=== PATIENT | male | born 1945 | race Caucasian/White ===

== ENCOUNTER 2024-12-12 14:25 | Emergency (ER) | payer OTHER, SELFPAY ==
[2024-12-12 14:32] VITALS: BP 191/87; BP 197/98; PULSE 66; RESP 20; TEMP 36.6; O2SAT 96; BMI 26.2
--- NOTE | 2024-12-12 14:35 | EKG_ITS ---
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
--- NOTE | 2024-12-12 14:35 | XR_ITS ---
Examination: CT brain head without contrast. 2-D sagittal coronal reconstructions Date and time of exam:December 12, 2024, 1453 hrs. Comparison January 2008 Indications: Hypertension with headache today CTDI: vol (mGy):53.2 DLP: (mGycm):1177 Technique: Multiple CT axial sections of the brain have been obtained, 5 mm slice thickness. Contrast has not been administered. 2-D sagittal, coronal reconstructions have been obtained Low dose protocols were performed. One or more of the following dose reduction techniques were used; automated exposure control, adjustment of the mA and/or KV according to patient size, use of iterative reconstruction technique. Findings: No significant ventricular enlargement. Intra-axial or extra-axial hemorrhage density is not seen. No mass effect or midline shift Basal cisterns are not remarkable. Fourth ventricle is midline. Cranial vault intact. Impression: Negative for acute hemorrhage, mass effect or midline shift
--- NOTE | 2024-12-12 14:36 | PD.EDRME ---
Rapid Medical Screening Exam RME Arrival date/time: 12/12/24 14:25 This is a case of 78-year-old male who came in in the emergency room due to headache and dizziness and elevated blood pressure patient also complaining of left chest pain and left arm pain for 2 days worsening of the symptoms this patient decided to start consult here in the emergency room Chief Complaint: General Adult/Misc Complain Time Seen by Provider: 12/12/24 14:34
[2024-12-12 15:11] LABS: Collection Type, Urine Voided
[2024-12-12 15:15] LABS: Basophils # (Auto) 0.1 Thou/mm3 (0.0-0.2); Basophils % (Auto) 1 % (0-2.5); Eosinophils # (Auto) 0.2 Thou/mm3 (0.0-0.5); Eosinophils % (Auto) 2 % (0-10); Hematocrit 49.6 % (41.0-53.0); Hemoglobin 16.7 g/dL (13.5-16.0); Immature Granulocytes % (Auto) 0 % (0-0); Immature Granulocytes Auto 0.01 Thou/mm3 (0.00-0.00); Lymphocytes # (Auto) 1.4 Thou/mm3 (1.0-4.8); Lymphocytes % (Auto) 19 % (10-50); Mean Corpuscular HGB Conc 33.7 g/dl (31.0-37.0); Mean Corpuscular Hemoglobin 29.1 pg (25.0-35.0); Mean Corpuscular Volume 87 fL (80-100); Monocytes # (Auto) 0.4 Thou/mm3 (0.0-0.8); Monocytes % (Auto) 6 % (0-12); Neutrophils # (Auto) 5.4 Thou/mm3 (1.8-7.7); Neutrophils % (Auto) 73 % (37-80); Nucleated Red Blood Cell % 0 /100 WBC (0); Platelet Count 177 Thou/mm3 (140-440); RDW Standard Deviation 44.1 fL (35.1-43.9); Red Blood Count 5.73 Miln/mm3 (4.50-5.90); White Blood Count 7.4 Thou/mm3 (3.8-10.6)
[2024-12-12 15:28] LABS: Bilirubin,Urine Negative (Negative); Blood,Urine Trace (Negative); Clarity,Urine Clear (Clear/Hazy); Color,Urine Lt-Yellow (Lt Yel-Yel); Glucose, Urine Negative (Negative); Ketones,Urine Negative (Negative); Leukocyte Esterase,Urine Negative (Negative); Nitrite,Urine Negative (Negative); Protein,Urine Trace (Neg - Trace); RBC,Urine 1 /hpf (0-3); Specific Gravity,Urine 1.017 (1.001-1.035); Squamous Epithelial Cell,Urine < 1 /hpf (0-5); Urobilinogen,Urine Negative mg/dL (0.0-1.0); WBC,Urine 1 /hpf (0-5)
[2024-12-12 15:35] LABS: Alanine Aminotransferase 21 U/L (10-49); Albumin, Serum 4.5 gm/dL (3.4-4.8); Albumin/Globulin Ratio 1.6 (1.2-2.2); Alkaline Phosphatase 148 U/L (46-116); Anion Gap 5 (7-16); Aspartate Amino Transferase 15 U/L (0-34); BUN/Creatinine Ratio 9 Ratio (12-20); Bilirubin,Total 0.7 mg/dL (0.3-1.2); Blood Urea Nitrogen 11 mg/dL (9-23); Calcium 8.8 mg/dL (8.3-10.6); Calcium (Corrected) 8.8 mg/dL (8.5-10.1); Carbon Dioxide 26.3 mMol/L (20.0-31.0); Chloride 108 mMol/L (98-107); Creatinine (Component) 1.2 mg/dL (0.6-1.3); Estimated Creatinine Clearance 54.1 mL/min (>60); Globulin 2.8 gm/dL (2.3-3.5); Glucose 113 mg/dL (74-106); Osmolality,Calculated 277 (275-295); Potassium 3.5 mMol/L (3.4-5.1); Sodium 139 mMol/L (136-145); Total Protein 7.3 gm/dL (5.7-8.2); Troponin I < 0.020 ng/mL (0.0-0.045); eGFR > 60 See Note
--- NOTE | 2024-12-12 19:28 | PC.NURSE ---
per AIDE Tariq pt was no answer for review and exam at 1830 and again at 1927.
--- NOTE | 2024-12-12 19:34 | PC.LAC ---
Marciano called pt with NA x3 [id number], [id number] we will elope chart
== END 2024-12-12 19:42 | disposition left against medical advice (07) ==
PROVIDERS: Nurse Practitioner Family; Emergency Provider Emergency Medicine; PCP Family Medicine
DX: R51.9 Headache, unspecified (principal); R42 Dizziness and giddiness; Z53.29 Procedure and treatment not carried out because of patient's decision for other reasons; R07.89 Other chest pain; M79.602 Pain in left arm; R03.0 Elevated blood-pressure reading, without diagnosis of hypertension; R94.31 Abnormal electrocardiogram [ECG] [EKG]
CPT/HCPCS: 36415; 70450; 80053; 81001; 84484; 85025; 93005; 99281

== ENCOUNTER → 2025-02-02 | Outpatient (CLI) | payer OTHER, SELFPAY ==
--- NOTE | 2025-02-02 10:22 | XR_ITS ---
Examination: Shoulder,left, 3 views Technique: Shoulder AP internal rotation, AP external rotation, Y view shoulder, 3 views Exam date and time :April 04, 2025 1037 hours INDICATIONS: Left shoulder pain one year. FINDINGS: Prominent osteopenia. Moderate narrowing left glenohumeral joint No fracture or shoulder dislocation IMPRESSION: Moderate osteoarthritis left glenohumeral joint
== END | disposition home or self-care (01) ==
LOC: CDIM 10:04
PROVIDERS: PCP Family Medicine; Referring Provider Family Medicine; Visit Provider Family Medicine
DX: M19.012 Primary osteoarthritis, left shoulder (principal)
CPT/HCPCS: 73030

== ENCOUNTER → 2025-02-24 | Outpatient (CLI) | payer OTHER, SELFPAY ==
--- NOTE | 2025-02-24 | XR_ITS ---
Examination: Knee, left , 3 views Technique: Knee AP, lateral, oblique 3 views Date and time of exam: February 24, 2025 1124 hours INDICATIONS: Left knee pain beginning 2 weeks ago FINDINGS: Moderate narrowing medial joint space No fracture or dislocation. No foreign body IMPRESSION: Moderate narrowing medial joint space
== END | disposition home or self-care (01) ==
PROVIDERS: PCP Family Medicine; Referring Provider Family Medicine; Visit Provider Family Medicine
DX: M25.862 Other specified joint disorders, left knee (principal)
CPT/HCPCS: 73562

== ENCOUNTER 2025-03-06 03:01 | Emergency (ER) | payer OTHER, SELFPAY ==
[2025-03-06 03:05] VITALS: BMI 25.9
[2025-03-06 04:08] VITALS: BP 208/98; BP 220/111; PULSE 61; RESP 17; TEMP 36.6; O2SAT 97
--- NOTE | 2025-03-06 04:15 | XR_ITS ---
Examination: CT abdomen and pelvis without contrast. Coronal 3-D reconstructions. Sagittal 2-D reconstructions. Date and time of exam:March 06, 2025, 0520 hrs., Comparison December 30, 2016 Indications: Flank pain dysuria lower back pain beginning 2 days ago CTDI: vol (mGy): 8.98 DLP: (mGycm): 557 Technique: Axial images of the abdomen have been obtained, 3 mm slice thickness Intravenous contrast material has not been administered. Low dose protocols were performed. One or more of the following dose reduction techniques were used; automated exposure control, adjustment of the mA and/or KV according to patient size, use of iterative reconstruction technique. Findings: No focal liver or splenic lesion No gallstones No pancreatic or adrenal mass 2 mm 4 mm right renal calculi, no hydronephrosis or ureteral calculi Abdominal aortic calcification no aneurysmal dilatation No bowel obstruction No pericecal inflammatory change Colonic diverticulosis, no diverticulitis Intact urinary bladder Prostatomegaly mediolateral dimension 4.3 cm Transpedicular lumbar fusion L4-S1 4.6 cm osteolytic lesion intertrochanteric region left hip with central 27 mm fat nidus Impression: Nonobstructing right renal calculi No hydronephrosis or ureteral calculi Severe osteopenia with kyphoplasty L2, L1 Stable osteolytic lesion intertrochanteric region left hip with cervical 27 mm fat nidus compared with December 30, 2016
--- NOTE | 2025-03-06 04:16 | PD.EDRME ---
Rapid Medical Screening Exam RME Arrival date/time: 03/06/25 03:01 This is a case of 79-year-old male with history of hypertension and chronic low back pain came in in the emergency room due to bilateral flank pain radiating to both lower abdomen associated with nausea vomiting painful urination increased frequency and urgency for 2 days worsening of the symptoms this patient decided to sought consult here in the emergency room Chief Complaint: Back Pain/Injury Time Seen by Provider: 03/06/25 04:15 Vital signs: Vital Signs Temperature 97.8 F 03/06/25 04:08 Pulse Rate 61 03/06/25 04:08 Respiratory Rate 17 03/06/25 04:08 Blood Pressure 220/111 H 03/06/25 04:08 Pulse Oximetry (%) 97 03/06/25 04:08 Oxygen Delivery Method Room Air 03/06/25 04:08
[2025-03-06 04:28] LABS: Collection Type, Urine Clean Catch; Squamous Epithelial Cell,Urine 0 /hpf (0-5)
[2025-03-06 04:34] LABS: Bilirubin,Urine Negative (Negative); Blood,Urine Negative (Negative); Clarity,Urine Clear (Clear/Hazy); Color,Urine Colorless (Lt Yel-Yel); Glucose, Urine Negative (Negative); Ketones,Urine Negative (Negative); Leukocyte Esterase,Urine Negative (Negative); Nitrite,Urine Negative (Negative); PH,Urine 7.0 (5.0-7.0); Protein,Urine Negative (Neg - Trace); RBC,Urine 6 /hpf (0-3); Specific Gravity,Urine 1.012 (1.001-1.035); Urobilinogen,Urine Negative mg/dL (0.0-1.0); WBC,Urine < 1 /hpf (0-5)
[2025-03-06 04:41] VITALS: BP 220/111; PULSE 61
[2025-03-06 05:02] LABS: Basophils # (Auto) 0.1 Thou/mm3 (0.0-0.2); Basophils % (Auto) 1 % (0-2.5); Eosinophils # (Auto) 0.3 Thou/mm3 (0.0-0.5); Eosinophils % (Auto) 3 % (0-10); Hematocrit 49.1 % (41.0-53.0); Hemoglobin 16.4 g/dL (13.5-16.0); Immature Granulocytes Auto 0.03 Thou/mm3 (0.00-0.00); Lymphocytes # (Auto) 1.7 Thou/mm3 (1.0-4.8); Lymphocytes % (Auto) 18 % (10-50); Mean Corpuscular HGB Conc 33.4 g/dl (31.0-37.0); Mean Corpuscular Hemoglobin 29.4 pg (25.0-35.0); Mean Corpuscular Volume 88 fL (80-100); Monocytes # (Auto) 0.6 Thou/mm3 (0.0-0.8); Monocytes % (Auto) 7 % (0-12); Neutrophils # (Auto) 6.8 Thou/mm3 (1.8-7.7); Neutrophils % (Auto) 71 % (37-80); Nucleated Red Blood Cell # 0.00 Thou/mm3 (0.00-0.00); Nucleated Red Blood Cell % 0 /100 WBC (0); Platelet Count 181 Thou/mm3 (140-440); RDW Standard Deviation 46.5 fL (35.1-43.9); Red Blood Count 5.57 Miln/mm3 (4.50-5.90); White Blood Count 9.6 Thou/mm3 (3.8-10.6)
[2025-03-06 05:20] LABS: Alanine Aminotransferase 28 U/L (10-49); Albumin, Serum 4.5 gm/dL (3.4-4.8); Albumin/Globulin Ratio 1.8 (1.2-2.2); Alkaline Phosphatase 142 U/L (46-116); Anion Gap 7 (7-16); Aspartate Amino Transferase 18 U/L (0-34); BUN/Creatinine Ratio 11 Ratio (12-20); Bilirubin,Total 0.9 mg/dL (0.3-1.2); Blood Urea Nitrogen 13 mg/dL (9-23); Calcium 9.3 mg/dL (8.3-10.6); Calcium (Corrected) 9.3 mg/dL (8.5-10.1); Carbon Dioxide 26.6 mMol/L (20.0-31.0); Chloride 109 mMol/L (98-107); Creatinine (Component) 1.2 mg/dL (0.6-1.3); Estimated Creatinine Clearance 53.2 mL/min (>60); Globulin 2.5 gm/dL (2.3-3.5); Glucose 98 mg/dL (74-106); Osmolality,Calculated 285 (275-295); Potassium 3.8 mMol/L (3.4-5.1); Sodium 143 mMol/L (136-145); Total Protein 7.0 gm/dL (5.7-8.2); eGFR > 60 See Note
[2025-03-06 05:53] VITALS: BP 151/76; PULSE 60; RESP 18; TEMP 36.6; O2SAT 98
--- NOTE | 2025-03-06 06:21 | PRELIM_ITS ---
CT scan of the abdomen and pelvis without intravenous contrast (axial sections with sagittal and coronal reformats) March 06, 2025 at 0520 hours Clinical History: Kidney stone No prior study is available for comparison. Findings: Left basilar atelectasis is seen. There is left adrenal thickening. Nonobstructing 3 mm right renal calculus is seen. No evidence of ureteric calculus or hydroureteronephrosis. The pancreas is atrophic. The liver, gallbladder, spleen, left kidney and right adrenal are unremarkable on this noncontrast study. A small hiatal hernia is present. No evidence of bowel obstruction. The appendix is within normal limits (axial image 142/291). There are multiple colonic diverticula without evidence of diverticulitis. There is no mesenteric or retroperitoneal adenopathy. The urinary bladder is unremarkable. There is mild prostatomegaly. There is no free fluid or free air. Calcific densities are seen in the pelvis, likely representing phleboliths. The bones are osteopenic. Posterior spinal fusion at L4-S1 levels. Post kyphoplasty of L1 and L2. There is lytic lesion in the left proximal femur measuring 5 x 2.8 x 2.4 cm with internal rim calcified nucleus. Moderate degenerative changes are identified in the spine. Impression: 1. Nonobstructing 3 mm right renal calculus. 2. No evidence of ureteric calculus or hydroureteronephrosis. 3. 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 Recommend further evaluation with MRI. 4. Other findings as described above. Report Electronically Signed By: Vinny Hdez 03/06/2025 6:20:39 AM [EST]
--- NOTE | 2025-03-06 07:25 | EDNOTE_ITS ---
ED Back Injury Pain RME/HPI General Chief Complaint: Back Pain/Injury Stated Complaint: PAIN IN URINATION, LOWER BACK PAIN, FREQUENCY Time Seen by Provider: 03/06/25 04:15 Source: patient, RN notes reviewed and old records reviewed Arrival date/time: 03/06/25 03:01 Mode of arrival: ambulatory Limitations: no limitations RME / HPI RME / HPI Narrative: 79yom presents to ED for 2-day history of generalized low back pain. No preceding injury or fall. Patient reports history of chronic pain and arthritis, takes gapapentin and norco at home. Low back pain worsens with movement and ambulation. No fever, shortness of breath, chest pain, nausea/vomiting, flank pain or dysuria/hematuria reported. Patient reports mild urinary urgency, history of BPH. 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 Related Data Home Medications ?Medication ?Instructions ?Recorded ?Confirmed aspirin 81 mg tablet,delayed 81 mg PO DAILY 01/26/18 0 09/27/20 release (Aspir-) doxazosin 1 mg tablet 8 mg PO QDAY 01/26/18 hydrocodone 7.5 mg-acetaminophen 1 tab PO Q6H PRN Pain 01/26/18 09/27/20 325 mg tablet (Frederic) lisinopril 40 mg tablet 40 mg PO QDAY 01/26/1809/27 atorvastatin 10 mg tablet 10 mg PO QDAY 09/27/2009/27 Allergies Allergy/AdvReac Type Severity Reaction Status Date / Time codeine Allergy Severe Vomiting Verified 03/06/25 03:03 Review of Systems Review of Systems Systems Reviewed: All systems reviewed, normal except as documented Constitutional Constitutional: Denies chills and Denies fever(s) ENT Ears, Nose, Mouth, and Throat: Denies neck pain Gastrointestinal Gastrointestinal: Denies abdominal pain, Denies fecal incontinence, Denies loose stools, Denies nausea and Denies vomiting Genitourinary Genitourinary: Denies dysuria, Denies flank pain, Denies hematuria, Denies urinary incontinence and Reports urinary urgency Musculoskeletal Musculoskeletal: Reports back pain, Denies neck pain, Denies numbness and Denies tingling Neurologic Neurologic: Denies localized weakness, Denies numbness and Denies tingling Past Medical History Past Medical History CARDIAC: Positive Cardiac Disorders, Coronary Artery Disease (STENT), Peripheral Vascular Disease, Hypercholesterolemia and Hypertension RESPIRATORY: Positive Chronic Obstructive Pulmonary Disease (COPD) GASTROINTESTINAL: Positive Gastroesophageal Reflux Disease GENITOURINARY: Positive Benign Prostatic Hyperplasia MUSCULOSKELETAL: Positive Musculoskeletal Disorders and Arthritis Surgical History SURGICAL: Positive Coronary Stent (X1) and Open Reduction Internal Fixation (LEFT ANKLE.....REMOVED 6 YEARS LATER) Social History SMOKING STATUS: Current every day smoker Travel History EBOLA RISK: No ED Exam General Limitations: Present no limitations General appearance: Present alert and in no apparent distress Head Head exam: Present atraumatic and normocephalic Eye Eye exam: Present normal appearance, PERRL and EOMI ENT ENT exam: Present normal exam and mucous membranes moist Neck Neck exam: Present normal inspection and full ROM Chest Chest inspection: Present normal inspection and symmetric chest wall rise Respiratory Respiratory exam: Present normal lung sounds bilaterally; Absent respiratory distress Cardiovascular Cardiovascular exam: Present regular rate and normal rhythm Abdominal Exam Abdominal exam: Present soft; Absent distention, tenderness, guarding or rebound Extremities Exam Extremities exam: Present normal inspection and full ROM; Absent pedal edema Back Exam Back exam: Present paraspinal tenderness (bilateral lumbar); Absent CVA tenderness (R), CVA tenderness (L) or vertebral tenderness Neurological Exam Neurological exam: Present alert, oriented X3, normal gait and other (No saddle anesthesia); Absent motor sensory deficit Psychiatric Psychiatric exam: Present normal affect and normal mood Skin Skin exam: Present warm, dry, intact and normal color Course Quality Measures none Orders Category Date Time Status CT abdomen pelvis wo con Stat Exams 03/06/25 04:15 Completed CBC Stat Lab 03/06/25 04:47 Completed Comprehensive Metabolic Panel Stat Lab 03/06/25 04:47 Completed Urinalysis Stat Lab 03/06/25 04:25 Completed cloNIDine HCL [Catapres] Med 03/06/25 04:16 Discontinued 0.2 mg PO X1 ONE Vital Signs Vital signs: Vital Signs Temperature 97.8 F 03/06/25 04:08 Pulse Rate 61 03/06/25 04:08 Respiratory Rate 17 03/06/25 04:08 Blood Pressure 220/111 H 03/06/25 04:08 Pulse Oximetry (%) 97 03/06/25 04:08 Oxygen Delivery Method Room Air 03/06/25 04:08 Back Pain / Injury MDM Narrative MDM Narrative:: 79yom presents to ED for 2-day history of generalized low back pain. No preceding injury or fall. Patient reports history of chronic pain and arthritis, takes gapapentin and norco at home. Low back pain worsens with movement and ambulation. No fever, shortness of breath, chest pain, nausea/vomiting, flank pain or dysuria/hematuria reported. Patient reports mild urinary urgency, history of BPH. 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 Patient is well-appearing, neurologically intact, able to ambulate without difficulty. Offered pain medication in ED but patient declined, states he will take his Frederic and gabapentin when he gets home. Encouraged rest, pain management, ice/heat application prn. Close follow-up with PCP. Stable for discharge, RTED precautions given. Patient data External records reviewed:: [facility] previous records (01/06/21 ED visit for folliculitis) Clinical information provided by:: patient Social determinants that could affect healthcare access:: none Patient has the following chronic illnesses:: HTN, BPH How is presenting disease/condition affected by chronic disease/condition?: exacerbated by Evaluation data The following diagnostics were reviewed and interpreted by me:: lab results and radiology exam(s) Lab and/or radiology exams considered but not ordered:: none Interpretation Summary: No leukocytosis No PRISCILLA UA neg leuks/nitrites/blood CT abd/pelvis Impression: 1. Nonobstructing 3 mm right renal calculus. 2. No evidence of ureteric calculus or hydroureteronephrosis. 3. 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 Recommend further evaluation with MRI. 4. Other findings as described above. Report Electronically Signed By: Vinny Hdez 03/06/2025 6:20:39 AM [EST] Medications / Prescriptions Medications or Prescriptions considered but not ordered:: no antibiotics recommended at this time Medication administrations:: Medication Administration History Discontinued Medications Clonidine (Clonidine Hcl 0.1 Mg Tablet) 0.2 mg PO X1 ONE Stop: 03/06/25 04:17 Last Admin: 03/06/25 04:41 Dose: 0.2 mg Documented By: CVL above medication administered in ED Consultations Consultation(s) initiated? (list below): No Diagnosis Differential diagnosis back pain/injury: other (back pain, back strain, kidney stone, renal colic, UTI, lumbar radiculopathy) Most likely diagnosis given after review of the tests above:: low back pain Admission Indicated Admission indicated?: not indicated Admission Request Was there a request for admission?: No Disposition Plan Disposition Plan: Discharge Discharge Attestation Discharge Attestation: The patient and all family members were given an opportunity to ask questions and understood the discharge instructions. Discharge instructions specifically effects, indications for sooner follow up or return to the emergency department, and the expected course of current diagnosis. Patient condition: Stable Discharge Plan Plan Patient Disposition: HOME (Self Care) Patient condition on transfer: Stable Prescriptions/Referrals Prescriptions/Med Rec: No Action doxazosin 1 mg Tablet 8 mg PO QDAY aspirin [Aspir-81] 81 mg Tablet,Delayed Release (Dr/Ec) 81 mg PO DAILY hydrocodone-acetaminophen [Frederic] 7.5-325 mg Tablet 1 tab PO Q6H PRN (Reason: Pain) lisinopril 40 mg Tablet 40 mg PO QDAY atorvastatin 10 mg Tablet 10 mg PO QDAY Referrals: Tucker Nugent MD [Primary Care Provider, Family Practice] - In 1 week Problem List Clinical Impression: Low back pain Patient/Caregiver Discharge Instructions Education Materials: ED Back Pain (Acute or Chronic) Print Language: Telugu Stand Alone Forms: Phyllis Award Info., Patient Portal Info Letter PA/SHOP GIRL Supervising Physician PA/SHOP GIRL Supervising Physician: Shari
== END 2025-03-06 07:31 | disposition home or self-care (01) ==
PROVIDERS: Nurse Practitioner Family; Emergency Provider Emergency Medicine; PCP Family Medicine
DX: N20.0 Calculus of kidney (principal); N40.0 Benign prostatic hyperplasia without lower urinary tract symptoms; M54.50 Low back pain, unspecified
CPT/HCPCS: 36415; 74176; 80053; 81001; 85025; 99283; A9270

== ENCOUNTER → 2025-03-08 | Outpatient (CLI) | payer OTHER, SELFPAY ==
[2025-03-08 08:40] LABS: Basophils # (Auto) 0.1 Thou/mm3 (0.0-0.2); Basophils % (Auto) 1 % (0-2.5); Eosinophils # (Auto) 0.3 Thou/mm3 (0.0-0.5); Eosinophils % (Auto) 4 % (0-10); Hematocrit 46.0 % (41.0-53.0); Hemoglobin 15.3 g/dL (13.5-16.0); Immature Granulocytes Auto 0.03 Thou/mm3 (0.00-0.00); Lymphocytes # (Auto) 1.5 Thou/mm3 (1.0-4.8); Lymphocytes % (Auto) 17 % (10-50); Mean Corpuscular HGB Conc 33.3 g/dl (31.0-37.0); Mean Corpuscular Hemoglobin 29.5 pg (25.0-35.0); Mean Corpuscular Volume 89 fL (80-100); Monocytes # (Auto) 0.6 Thou/mm3 (0.0-0.8); Monocytes % (Auto) 7 % (0-12); Neutrophils # (Auto) 6.1 Thou/mm3 (1.8-7.7); Neutrophils % (Auto) 71 % (37-80); Nucleated Red Blood Cell # 0.00 Thou/mm3 (0.00-0.00); Nucleated Red Blood Cell % 0 /100 WBC (0); Platelet Count 149 Thou/mm3 (140-440); RDW Standard Deviation 46.9 fL (35.1-43.9); Red Blood Count 5.18 Miln/mm3 (4.50-5.90); White Blood Count 8.6 Thou/mm3 (3.8-10.6)
[2025-03-08 09:21] LABS: Alanine Aminotransferase 23 U/L (10-49); Albumin, Serum 4.2 gm/dL (3.4-4.8); Alkaline Phosphatase 131 U/L (46-116); Anion Gap 7 (7-16); Aspartate Amino Transferase 16 U/L (0-34); BUN/Creatinine Ratio 14 Ratio (12-20); Bilirubin,Direct 0.2 mg/dL (0.0-0.3); Bilirubin,Total 0.6 mg/dL (0.3-1.2); Blood Urea Nitrogen 17 mg/dL (9-23); Calcium 9.1 mg/dL (8.3-10.6); Carbon Dioxide 27.3 mMol/L (20.0-31.0); Cardiac Risk Estimate 2.7 RATIO (4.0-6.7); Chloride 108 mMol/L (98-107); Cholesterol 117 mg/dL (132-200); Creatinine (Component) 1.2 mg/dL (0.6-1.3); Glucose 94 mg/dL (74-106); HDL Cholesterol 44 mg/dL (40-60); LDL Cholesterol,Calculated 61 mg/dL (0-130); Osmolality,Calculated 284 (275-295); Potassium 4.1 mMol/L (3.4-5.1); Sodium 142 mMol/L (136-145); Total Protein 6.3 gm/dL (5.7-8.2); Triglycerides 61 mg/dL (30-150); eGFR > 60 See Note
== END | disposition home or self-care (01) ==
LOC: COPL 07:56
PROVIDERS: PCP Family Medicine; Referring Provider Family Medicine; Visit Provider Family Medicine
DX: M51.9 Unspecified thoracic, thoracolumbar and lumbosacral intervertebral disc disorder (principal); E78.5 Hyperlipidemia, unspecified
CPT/HCPCS: 36415; 80048; 80061; 80076; 85025